=== PATIENT | male | born 1940 | race Caucasian/White ===

== ENCOUNTER 2016-09-07 07:32 | Outpatient (CLI) | payer MEDICARE, OTHER | END 2016-09-07 07:33 | disposition home or self-care (01) | DX: I12.9 Hypertensive chronic kidney disease with stage 1 through stage 4 chronic kidney disease, or unspecified chronic kidney disease (principal); E29.1 Testicular hypofunction; N18.9 Chronic kidney disease, unspecified ==

== ENCOUNTER 2016-12-27 07:55 | Outpatient (CLI) | payer MEDICARE, OTHER ==
[2016-12-27 13:31] LABS: CALCIUM 9.1 mg/dL (8.5-10.3); CREATININE 1.7 mg/dL (0.6-1.2); POTASSIUM 4.6 mmol/L (3.5-5.0)
[2016-12-27 13:34] LABS: HEMOGLOBIN A1C 0.63 g/dL; PSA FREE 1.47 ng/mL (0.16-2.81)
[2016-12-27 13:36] LABS: PSA TOTAL 2.67 ng/mL (0.000-2.000)
== END 2016-12-27 07:56 | disposition home or self-care (01) ==
LOC: LAB.WCP 07:55
PROVIDERS: ATTEND Family Medicine
DX: I12.9 Hypertensive chronic kidney disease with stage 1 through stage 4 chronic kidney disease, or unspecified chronic kidney disease (principal); N18.9 Chronic kidney disease, unspecified; R73.9 Hyperglycemia, unspecified; R97.20 Elevated prostate specific antigen [PSA]; E29.1 Testicular hypofunction
CPT/HCPCS: 36415; 80048; 83036; 84154; 84403

== ENCOUNTER 2017-02-13 07:27 | Outpatient (CLI) | payer MEDICARE, OTHER ==
[2017-02-13 13:39] LABS: CALCIUM 9.2 mg/dL (8.5-10.3); CREATININE 1.1 mg/dL (0.6-1.2); POTASSIUM 4.2 mmol/L (3.5-5.0)
== END 2017-02-13 07:28 | disposition home or self-care (01) ==
LOC: LAB.WCP 07:27
PROVIDERS: ATTEND Family Medicine
DX: R73.9 Hyperglycemia, unspecified (principal); I12.9 Hypertensive chronic kidney disease with stage 1 through stage 4 chronic kidney disease, or unspecified chronic kidney disease; N18.9 Chronic kidney disease, unspecified; N52.9 Male erectile dysfunction, unspecified; F32.9 Major depressive disorder, single episode, unspecified
CPT/HCPCS: 36415; 80048

== ENCOUNTER 2017-05-26 10:54 | Outpatient (CLI) | payer MEDICARE, OTHER ==
--- NOTE | 2017-05-26 12:36 | Ultrasound Report ---
LEFT LEG VENOUS DUPLEX: 05/26/2017 CLINICAL INDICATION: Pain, history of left leg DVT. TECHNIQUE: Real-time sonographic vascular imaging was performed by the anvilsmith through the left l ower extremity utilizing both color flow and Doppler spectral analysis. Multiple new accounts representative stati c images were saved for review. FINDINGS: A left lower extremity venous sonogram is performed revealing the common femoral, superfici al femoral, profunda femoris, and popliteal veins to be adequately visualized without intraluminal de fects. There is normal venous compression, augmentation, phasicity, and spontaneity of venous flow. I n the calf, the visualized more cephalad portions of posterior tibial and peroneal veins are grossly compressible, without filling defects. IMPRESSION: NO EVIDENCE OF DEEP VENOUS THROMBOSIS. JOB #: [id number] EXT JOB #:[id number]
== END 2017-05-26 10:55 | disposition home or self-care (01) ==
LOC: DI 10:54
PROVIDERS: ATTEND Family Medicine
DX: M79.605 Pain in left leg (principal)

== ENCOUNTER 2017-06-12 07:40 | Outpatient (CLI) | payer MEDICARE, OTHER ==
--- NOTE | 2017-06-12 13:38 | MRI Report ---
EXAM: MRI LUMBAR SPINE WITHOUT CONTRAST EXAM DATE: 06/12/2017 08:19 AM. CLINICAL HISTORY: Low back pain, chronic. COMPARISON: There are 5 views of the lumbosacral spine 01/28/2015. TECHNIQUE: Multiplanar, multisequence T1-weighted and fluid-sensitive sequences of the lumbar spine f rom T12 to S1 without contrast. Other: None. FINDINGS: There is slight accentuation of the normal lumbar lordosis. The conus terminates at L1-L2 and is norm al. The anterior to posterior dimension of the bony lumbar canal is less than 15 mm consistent with a con genital stenosis. There is mild hypertrophy of the fat in the posterior epidural space at the L3-L4 through L5-S1 level s consistent with areas of epidural lipomatosis. There is a mild decrease in the intervertebral disk space height at the T11-T12, T12-L1, mild to mode rate at L4-L5 and mild decrease at L5-S1. There is a grade 1 anterolisthesis of L4 on L5. The bone marrow signal intensities exhibit a mixture of red and fatty marrow. In a patient of this ag e this can be secondary either to anemia or also can be seen in cases of smoking. Recommend correlati on with history. There is no significant atrophy of the paraspinal musculature or the psoas musculature. The abdominal aorta is of normal caliber. The kidneys are without evidence of hydronephrosis. T11-T12: There is a small disk osteophyte complex abutting the sac producing a mild central canal vonnie nosis. There is no significant foraminal stenosis. T12-L1: There is a small disk osteophyte complex abutting the sac producing a mild central canal sten osis. L1-L2: There is a small perineural cyst within the left foraminal space. Otherwise the remainder of t he level is normal. L2-L3: There is a small disk osteophyte complex abutting the sac producing a mild central canal steno sis. There is mild hypertrophy of the fat in the posterior epidural space. There is minimal left face t arthropathy. L3-L4: There is a small disk osteophyte complex abutting the sac. There is hypertrophy of the fat in the posterior epidural space. This produces a mild to moderate central canal stenosis. There is mild bilateral facet arthropathy. There is mild right and left foraminal stenosis. L4-L5: There is a broad-based disk osteophyte complex with superimposed central extrusion of the disk with annular tear. There is moderate ligamentum flavum hypertrophy. There is severe left and moderat e right facet arthropathy with small to large facet effusions. There are synovial cysts posterior to the facets bilaterally. There is T2 hyperintensity surrounding the right-sided synovial cyst. This ap pears to be associated with the spinous processes. The hyperintensity likely reflects associated area s of inflammation which could be a potential source of pain. There is also an additional synovial cys t extending into the right foraminal space This combination of findings produces a severe central ca nal stenosis. Recommend clinical correlation with symptoms. There is mild to moderate right and moder ate to severe left neural foraminal narrowing. Recommend correlation for left L4 radicular symptoms. L5-S1: There is a small disk osteophyte complex with annular tear abutting the sac. There is moderate to severe right and mild to moderate left facet arthropathy with small to moderate facet effusions. There is mild ligamentum flavum hypertrophy. There is again hypertrophy of the fat in the posterior e pidural space. This combination of findings produces a moderate to severe central canal stenosis ther e is mild to moderate right and left neural foraminal narrowing. IMPRESSION: 1. There is a severe central canal stenosis at L4-L5 from a combination of broad-based disk osteophyt e complex with superimposed central extrusion of the disk in combination with ligamentum flavum hyper trophy, epidural lipomatosis, and facet arthropathy. There are also bilateral synovial cysts. The lar gest appears to be associated with the spinous processes of L4 and L5 and has associated edema likely reflecting areas of inflammation. Recommend correlation with clinical symptoms. 2. There is a small disk osteophyte complex with annular tear at L5-S1 which in combination with liga mentum flavum hypertrophy and epidural lipomatosis produces a moderate to severe central canal stenos is. 3. There is a small disk osteophyte complex which in combination with epidural lipomatosis produces a mild to moderate central canal stenosis. Comment: The following findings are so common in adults without low back pain that while we report th eir presence, they must be interpreted with caution and in the context of the clinical situation. (Re eli Martinez et al, Spine 2001) Prevalence of findings in patients without low back pain: Disk degeneration (any evidence): 92% Disk desiccation/T2 signal loss: 83% Disk height loss: 56% Disk bulge: 64% Disk protrusion: 32% Annular tear/high intensity zone: 38% [facility] Referring Provider Line: [phone] SITE ID: [id number]
== END 2017-06-12 07:41 | disposition home or self-care (01) ==
LOC: DI 07:40
PROVIDERS: ATTEND Family Medicine
DX: M51.26 Other intervertebral disc displacement, lumbar region (principal); M51.36 Other intervertebral disc degeneration, lumbar region; M47.896 Other spondylosis, lumbar region; M51.37 Other intervertebral disc degeneration, lumbosacral region; M71.38 Other bursal cyst, other site; M43.16 Spondylolisthesis, lumbar region
CPT/HCPCS: 72148

== ENCOUNTER 2017-07-06 14:05 | Outpatient (CLI) | payer MEDICARE, OTHER ==
[2017-07-06 14:49] LABS: ALBUMIN/GLOBULIN RATIO 1.3 (1.0-2.2); BUN - BLOOD UREA NITROGEN 31 mg/dL (6-20); CALCIUM 8.9 mg/dL (8.5-10.3); CARBON DIOXIDE - CO2 27 mmol/L (21-32); CHLORIDE 103 mmol/L (101-111); CHOL/HDL RATIO 2.3 (<5.0); CHOLESTEROL 177 mg/dL; CREATININE 1.4 mg/dL (0.6-1.2); GFR - MDRD 49 (>89); GLUCOSE 102 mg/dL (70-100); HDL CHOLESTEROL 78 mg/dL; POTASSIUM 4.6 mmol/L (3.5-5.0); SODIUM 138 mmol/L (135-145); TRIGLYCERIDES 94 mg/dL; VLDL CHOLESTEROL 19 mg/dL
[2017-07-06 15:19] LABS: HEMOGLOBIN A1C 0.64 g/dL
== END 2017-07-06 14:06 | disposition home or self-care (01) ==
LOC: LAB.WCP 14:05
PROVIDERS: ATTEND Family Medicine
DX: N18.9 Chronic kidney disease, unspecified (principal); R73.9 Hyperglycemia, unspecified; I10 Essential (primary) hypertension
CPT/HCPCS: 36415; 80053; 80061; 83036

== ENCOUNTER 2017-08-11 14:25 | Emergency (ER) | payer MEDICARE, OTHER ==
[2017-08-11 14:59] VITALS: BP 141/76
--- NOTE | 2017-08-11 17:27 | XRAY Report ---
EXAM: LEFT FIFTH DIGIT RADIOGRAPHY EXAM DATE: 08/11/2017 05:02 PM. CLINICAL HISTORY: Swelling, erythema left little finger. COMPARISON: None. TECHNIQUE: 3 views. FINDINGS: Bones: Decreased bone density on both sides of the fifth PIP joint with small uncinate fragmentation of the distal phalangeal base and middle phalangeal head. Otherwise unremarkable. Joints: Marked fifth DIP joint space narrowing. Mild narrowing of the other visualized DIP joint and PIP joints. Unremarkable MCP joints. Soft Tissues: Prominent soft tissue swelling. No soft tissue gas or foreign body. IMPRESSION: Findings as above, compatible with joint infection with associated osteomyelitis. Confirm ation with MR scan or 3 phase radionuclide bone scan may be helpful. [facility] Referring Provider Line: [phone] SITE ID: [id number]
[2017-08-11] MEDS ORDERED: AMOX/CLAV 875 MG/125 MG TABLET PO STA (17:58)
--- NOTE | 2017-08-11 18:09 | ED Physician Documentation ---
PD HPI UPPER EXT INJURY - Stated complaint Stated Complaint: LEFT PINKY SWELLING - Chief complaint Chief Complaint: Wound - History obtained from History obtained from: Patient, Family (spouse) - History of Present Illness Location: Left, Finger (little finger) Type of injury: Other (No recent injury.) Timing - onset: How many months ago (1) Timing - duration: Months (1) Timing - details: Still present Associated symptoms: Swelling - Treatment prior to arrival Treatment prior to arrival: Completed a 10 day course of cephalexin 2 weeks ago. - Additonal information Additional information: The patient is a 76-year-old male who presents with swelling of his left little finger. He first noticed the swelling one month ago. He was prescribed a 10 day course of cephalexin at that time, and states that the swelling and erythema improved with the antibiotic therapy. Evaluation for gout was negative. He presents now because of persistent swelling and erythema, although better after the antibiotic therapy then it was prior to the antibiotics. He denies any traumatic injury. He denies fever, numbness or weakness. He has no history of diabetes. He denies history of similar symptoms in the past. He is left-hand dominant. Review of Systems Constitutional: denies: Fever Nose: denies: Congestion Respiratory: denies: Dyspnea Skin: denies: Rash Musculoskeletal: reports: Extremity swelling (Left little finger.) Neurologic: denies: Focal weakness, Numbness PD PAST MEDICAL HISTORY - Past Medical History Past Medical History: Yes Cardiovascular: Hypertension Endocrine/Autoimmune: None HEENT: Chronic vision loss - Past Surgical History Past Surgical History: Yes Ortho: Hip replacement, Carpal Tunnel surgery - Present Medications Home Medications: Ambulatory Orders Medication Instructions Recorded Confirmed Amox/Clav 875/125 [Augmentin] 1 each PO Q12H #20 tablet 08/11/17 Bisoprolol Fumarate/Hctz 1 tab PO DAILY 08/11/17 08/11/17 [Bisoprolol-Hctz 10-6.25 mg Tab] Losartan [Cozaar] 100 mg PO DAILY 08/11/17 08/11/17 Testosterone [Axiron] 30 mg PO DAILY 08/11/17 08/11/17 - Allergies Allergies/Adverse Reactions: Allergies Allergy/AdvReac Type Severity Reaction Status Date / Time No Known Drug Allergies Allergy Verified 08/11/17 14:59 - Social History Does the pt smoke?: No Smoking Status: Never smoker Does the pt drink ETOH?: No Does the pt have substance abuse?: No - Immunizations Immunizations are current?: Yes - POLST Patient has POLST: No PD ED PE NORMAL - Vitals Vital signs reviewed: Yes (Mild systolic hypertension initially.) - General General: Alert and oriented X 3, Well developed/nourished - HEENT HEENT: Atraumatic - Cardiac Cardiac: RRR - Respiratory Respiratory: No respiratory distress - Derm Derm: No rash - Extremities Extremities: Other (There is swelling of the left little finger with mild erythema extending from the fingertip to the PIP joint. There is tenderness to palpation at the DIP joint. There is decreased flexion, particularly at the DIP joint. Distal neurovascular is intact.) - Neuro Neuro: Alert and oriented X 3, No motor deficit, No sensory deficit Results - Vitals Vitals: Oxygen O2 Source Room air - Rads (name of study) Left little finger Radiology: Prelim report reviewed, EMP read contemporaneously, See rad report ( Findings compatible with joint infection with associated osteomyelitis. Confirmation with MR scan or 3 phase radionuclide scan may be helpful.) PD MEDICAL DECISION MAKING - ED course Complexity details: reviewed results, re-evaluated patient, considered differential, d/w patient, d/w family, d/w clinical application consultant ED course: The patient's presentation is significant for osteomyelitis of the left little finger, predominantly at the DIP joint. This has apparently been a smoldering infection over a period of one month or more. I discussed his condition with Dr. Cabrera who was on-call for orthopedic surgery. He advises that the patient should be referred to a hand specialist on an urgent, but not necessarily an emergent basis. I discussed his condition with Dr. Valderrama who is on-call for Dr. Alcantara, the patient's primary physician. He will assure that the patient has a Monday appointment for hand specialist referral. Treatment in the emergency department included administration of Augmentin 875 mg orally. He is being discharged with prescription for Augmentin. I discussed with him and his the diagnosis, importance of urgent follow-up, as well as potentially worrisome signs or symptoms that should prompt reevaluation in the emergency department. Departure - Departure Disposition: 01 Home, Self Care Clinical Impression: Osteomyelitis Qualifiers: Osteomyelitis type: subacute Osteomyelitis location: hand Laterality: left Qualified Code(s): M86.242 - Subacute osteomyelitis, left hand Condition: Stable Instructions: Amoxicillin Clavulanic Acid extended-release tablets Follow-Up: JEANA ALCANTARA MD [Physician No Access] - Prescriptions: Amox/Clav 875/125 [Augmentin] 1 each PO Q12H #20 tablet Comments: Take Augmentin twice daily as prescribed. Take probiotic while on antibiotic therapy. Follow up with Dr. Alcantara next week as soon as possible. He may want to refer you to a hand specialist. Return to the emergency department if you develop increasing redness or swelling of your finger, or otherwise worsening symptoms. Discharge Date/Time: 08/11/17 18:25
== END 2017-08-11 18:25 | disposition home or self-care (01) ==
LOC: ED 14:25
DX: M86.242 Subacute osteomyelitis, left hand (principal); I10 Essential (primary) hypertension
CPT/HCPCS: 73140; 99283; A9270

== ENCOUNTER 2018-01-09 07:50 | Outpatient (CLI) | payer MEDICARE, OTHER ==
[2018-01-09 08:08] LABS: BASOPHILS % (AUTO) 0.6 %; EOSINOPHILS # (AUTO) 0.2 10^3/uL (0.0-0.7); EOSINOPHILS % (AUTO) 2.4 %; LYMPHOCYTES # (AUTO) 1.4 10^3/uL (1.5-3.5); LYMPHOCYTES % (AUTO) 22.3 %; MEAN CORPUSCULAR HEMOGLOBIN 33.8 pg (27.0-31.0); MEAN CORPUSCULAR HGB CONC 33.7 g/dL (32.0-36.0); MEAN CORPUSCULAR VOLUME 100.4 fL (80.0-94.0); MEAN PLATELET VOLUME 8.6 fL (7.4-11.4); MONOCYTES # (AUTO) 0.6 10^3/uL (0.0-1.0); MONOCYTES % (AUTO) 9.2 %; NEUTROPHILS # (AUTO) 4.2 10^3/uL (1.5-6.6); NEUTROPHILS % (AUTO) 65.5 %; PLT - PLATELET COUNT 181 10^3/uL (130-450); RED BLOOD COUNT 4.72 10^6/uL (4.70-6.10); RED CELL DISTRIBUTION WIDTH 14.2 % (12.0-15.0); WHITE BLOOD COUNT 6.5 x10^3/uL (4.8-10.8)
[2018-01-09 08:30] LABS: ALBUMIN 3.5 g/dL (3.2-5.5); ALBUMIN/GLOBULIN RATIO 1.2 (1.0-2.2); ALKALINE PHOSPHATASE 29 IU/L (42-121); ALT ALANINE AMINOTRANSFERASE 23 IU/L (10-60); AST ASPARTATE AMINOTRANSFERASE 31 IU/L (10-42); BILIRUBIN,TOTAL 0.7 mg/dL (0.2-1.0); BUN - BLOOD UREA NITROGEN 24 mg/dL (6-20); CALCIUM 8.7 mg/dL (8.5-10.3); CARBON DIOXIDE - CO2 26 mmol/L (21-32); CHLORIDE 105 mmol/L (101-111); CHOL/HDL RATIO 2.4 (<5.0); CHOLESTEROL 142 mg/dL; CREATININE 1.6 mg/dL (0.6-1.2); GFR - MDRD 42 (>89); GLUCOSE 92 mg/dL (70-100); HDL CHOLESTEROL 58 mg/dL; LDL CHOLESTEROL,CALCULATED 54 mg/dL; LDL/HDL RATIO 0.9 (<3.6); SODIUM 138 mmol/L (135-145); TOTAL PROTEIN 6.4 g/dL (6.7-8.2); VLDL CHOLESTEROL 30 mg/dL
== END 2018-01-09 07:51 | disposition home or self-care (01) ==
LOC: LAB 07:50
PROVIDERS: ATTEND Internal Medicine
DX: E29.1 Testicular hypofunction (principal); Z79.899 Other long term (current) drug therapy; I10 Essential (primary) hypertension
CPT/HCPCS: 36415; 80053; 80061; 83721; 84403; 85025

== ENCOUNTER 2018-04-26 08:00 | Outpatient (CLI) | payer MEDICARE, OTHER ==
[2018-04-26 15:50] LABS: ALBUMIN 3.9 g/dL (3.2-5.5); ALBUMIN/GLOBULIN RATIO 1.4 (1.0-2.2); BILIRUBIN,TOTAL 1.1 mg/dL (0.2-1.0); CALCIUM 8.6 mg/dL (8.5-10.3); CREATININE 1.4 mg/dL (0.6-1.2); TOTAL PROTEIN 6.7 g/dL (6.7-8.2)
== END 2018-04-26 08:01 | disposition home or self-care (01) ==
LOC: LAB.R 08:00
PROVIDERS: ATTEND Internal Medicine
DX: N18.9 Chronic kidney disease, unspecified (principal)
CPT/HCPCS: 80053; 80061; 83036; 83721; 84153; 84443; 85025; 87640

== ENCOUNTER 2018-04-27 09:15 | Outpatient (CLI) | payer MEDICARE, OTHER ==
[2018-04-27 17:21] LABS: BASOPHILS # (AUTO) 0.2 10^3/uL (0.0-0.1); BASOPHILS % (AUTO) 2.8 %; EOSINOPHILS # (AUTO) 0.1 10^3/uL (0.0-0.7); EOSINOPHILS % (AUTO) 1.5 %; HGB - HEMOGLOBIN 16.1 g/dL (14.0-18.0); LYMPHOCYTES # (AUTO) 1.3 10^3/uL (1.5-3.5); LYMPHOCYTES % (AUTO) 14.5 %; MEAN CORPUSCULAR HEMOGLOBIN 33.7 pg (27.0-31.0); MEAN CORPUSCULAR HGB CONC 33.6 g/dL (32.0-36.0); MEAN CORPUSCULAR VOLUME 100.3 fL (80.0-94.0); MEAN PLATELET VOLUME 10.3 fL (7.4-11.4); MONOCYTES # (AUTO) 0.8 10^3/uL (0.0-1.0); MONOCYTES % (AUTO) 9.4 %; NEUTROPHILS # (AUTO) 6.4 10^3/uL (1.5-6.6); NEUTROPHILS % (AUTO) 71.8 %; PLT - PLATELET COUNT 184 10^3/uL (130-450); RED BLOOD COUNT 4.76 10^6/uL (4.70-6.10); RED CELL DISTRIBUTION WIDTH 12.7 % (12.0-15.0); WHITE BLOOD COUNT 8.9 x10^3/uL (4.8-10.8)
== END 2018-04-27 09:16 | disposition home or self-care (01) ==
LOC: LAB.R 09:15
PROVIDERS: ATTEND Internal Medicine
DX: Z01.818 Encounter for other preprocedural examination (principal); N18.9 Chronic kidney disease, unspecified
CPT/HCPCS: 85025

== ENCOUNTER 2018-07-30 08:00 | Outpatient (CLI) | payer MEDICARE, OTHER ==
[2018-07-30 15:34] LABS: CALCIUM 8.6 mg/dL (8.5-10.3); CREATININE 1.3 mg/dL (0.6-1.2)
== END 2018-07-30 23:59 | disposition home or self-care (01) ==
LOC: LAB.R 08:00
PROVIDERS: ATTEND Internal Medicine
DX: N18.9 Chronic kidney disease, unspecified (principal)
CPT/HCPCS: 80048

== ENCOUNTER 2018-09-17 08:27 | Emergency (ER) | payer MEDICARE, OTHER ==
--- NOTE | 2018-09-17 08:40 | ED Physician Documentation ---
PD HPI HEENT - Stated complaint Stated Complaint: BLODDY NOSE - History obtained from History obtained from: Patient - History of Present Illness Timing - onset: How many days ago (3) Timing - duration: Days Timing - details: Intermittant (more persistent and voluminous today) Location: Nose Associated symptoms: Congestion, Rhinorrhea. No: Fever, Swollen nodes Similar symptoms before: Has not had sx before Review of Systems Constitutional: denies: Fever Nose: reports: Rhinorrhea / runny nose, Congestion. denies: Sinus pressure / pain Throat: denies: Sore throat Respiratory: denies: Cough PD PAST MEDICAL HISTORY - Past Medical History Cardiovascular: Hypertension Endocrine/Autoimmune: None HEENT: Chronic vision loss - Past Surgical History Past Surgical History: Yes Ortho: Hip replacement, Carpal Tunnel surgery - Present Medications Home Medications: Ambulatory Orders Medication Instructions Recorded Confirmed Bisoprolol Fumarate/Hctz 1 tab PO DAILY 08/11/17 08/11/17 [Bisoprolol-Hctz 10-6.25 mg Tab] Losartan [Cozaar] 100 mg PO DAILY 08/11/17 08/11/17 Testosterone [Axiron] 30 mg PO DAILY 08/11/17 08/11/17 Tamsulosin HCl [Flomax] 0.4 mg PO DAILY 09/17/18 09/17/18 - Allergies Allergies/Adverse Reactions: Allergies Allergy/AdvReac Type Severity Reaction Status Date / Time No Known Drug Allergies Allergy Verified 08/11/17 14:59 - Social History Does the pt smoke?: No Smoking Status: Never smoker Does the pt drink ETOH?: No Does the pt have substance abuse?: No - Immunizations Immunizations are current?: Yes - POLST Patient has POLST: No PD ED PE NORMAL - Vitals Vital signs reviewed: Yes - General General: Alert and oriented X 3, Well developed/nourished - HEENT HEENT: Pharynx benign, Other (red blood and some clots in nares both sides. ) - Neck Neck: Supple, no meningeal sign, No adenopathy - Cardiac Cardiac: RRR, No murmur - Respiratory Respiratory: Clear bilaterally Results - Vitals Vitals: Vital Signs - 24 hr 09/17/18 08:42 Temperature 37.2 C Heart Rate 60 Respiratory 16 Rate Blood Pressure 146/85 H O2 Saturation 98 Oxygen O2 Source Room air - Labs Labs: Laboratory Tests 09/17/18 09/17/18 09:10 09:10 WBC 6.6 RBC 4.48 L Hgb 15.0 Hct 44.1 MCV 98.6 H MCH 33.5 H MCHC 34.0 RDW 14.0 Plt Count 146 MPV 7.7 Neut # (Auto) 4.5 Lymph # (Auto) 1.2 L [place] # (Auto) 0.6 Eos # (Auto) 0.2 Baso # (Auto) 0.1 Absolute Nucleated RBC 0.00 Nucleated RBC % 0.0 Sodium 138 Potassium 4.9 Chloride 103 Carbon Dioxide 26 Anion Gap 9.0 BUN 23 H Creatinine 1.3 H Estimated GFR (MDRD) 53 L Glucose 88 Calcium 8.6 Total Bilirubin 0.9 AST 30 ALT 21 Alkaline Phosphatase 43 Total Protein 6.3 L Albumin 3.6 Globulin 2.7 Albumin/Globulin Ratio 1.3 Lipase 28 Procedures - Epistaxis Site: Both (the bleeding is from irritation at posterior aspect of the prior septal hole. So bleeding to both nares.), Anterior Preparation: Clots removed, Lidocaine (with epi, and some TXA.) Treatment: Silver Nitrate, Packing inserted Other: Observed - no bleeding, Pt tolerated well, Referred to ENT PD MEDICAL DECISION MAKING - ED course Complexity details: considered differential (has had nasal congestion so irritated mucous membranes in nose. Has prior septal hole "my whole life" per patient. ), d/w patient Departure - Departure Disposition: 01 Home, Self Care Clinical Impression: Epistaxis Condition: Stable Record reviewed to determine appropriate education?: Yes Instructions: ED Nosebleed, ED Nasal Packing Anterior Removable Follow-Up: Manas Barrios MD [Primary Care Provider] - [facility] [Provider Group] Comments: Your blood count is good. Your platelet count is normal as well. Leave the foam packings in the nostrils until this evening and then pulled in all gently after moisturizing them with water. Subsequently use some Vaseline or a and D ointment or similar just lightly in the inside wall of the nostrils on both side s once or twice daily to keep it from being raw. Follow-up with ENT for evaluation of the septum. Discharge Date/Time: 09/17/18 10:20
[2018-09-17 08:45] VITALS: BP 146/85
[2018-09-17] MEDS ORDERED: TRANEXAMIC ACID 1,000 MG/10 ML VIAL NAS STA (08:58)
[2018-09-17] MEDS ORDERED: LIDOCAINE MPF 1%-EPI 1:200000 30 ML VIAL SUBQ STA (08:58)
[2018-09-17 09:19] LABS: BASOPHILS # (AUTO) 0.1 10^3/uL (0.0-0.1); BASOPHILS % (AUTO) 0.9 %; EOSINOPHILS # (AUTO) 0.2 10^3/uL (0.0-0.7); EOSINOPHILS % (AUTO) 3.1 %; LYMPHOCYTES # (AUTO) 1.2 10^3/uL (1.5-3.5); LYMPHOCYTES % (AUTO) 18.1 %; MEAN CORPUSCULAR HEMOGLOBIN 33.5 pg (27.0-31.0); MEAN CORPUSCULAR VOLUME 98.6 fL (80.0-94.0); MEAN PLATELET VOLUME 7.7 fL (7.4-11.4); MONOCYTES # (AUTO) 0.6 10^3/uL (0.0-1.0); MONOCYTES % (AUTO) 9.4 %; NEUTROPHILS # (AUTO) 4.5 10^3/uL (1.5-6.6); NEUTROPHILS % (AUTO) 68.5 %; PLT - PLATELET COUNT 146 10^3/uL (130-450); RED BLOOD COUNT 4.48 10^6/uL (4.70-6.10); WHITE BLOOD COUNT 6.6 x10^3/uL (4.8-10.8)
[2018-09-17 09:29] LABS: ALBUMIN 3.6 g/dL (3.2-5.5); ALBUMIN/GLOBULIN RATIO 1.3 (1.0-2.2); BILIRUBIN,TOTAL 0.9 mg/dL (0.2-1.0); CREATININE 1.3 mg/dL (0.6-1.2); TOTAL PROTEIN 6.3 g/dL (6.7-8.2)
[2018-09-17 09:35] LABS: CALCIUM 8.6 mg/dL (8.5-10.3)
== END 2018-09-17 10:20 | disposition home or self-care (01) ==
LOC: ED 08:27
DX: R04.0 Epistaxis (principal); R09.81 Nasal congestion; I10 Essential (primary) hypertension
CPT/HCPCS: 30901; 30905; 36415; 80053; 83690; 85025; 99282; 99283

== ENCOUNTER 2018-09-23 15:03 | Emergency (ER) | payer MEDICARE, OTHER ==
[2018-09-23 15:21] VITALS: BP 160/69
--- NOTE | 2018-09-23 16:46 | Ultrasound Report ---
Reason: calf pain and swelling Procedure Date: 09/23/2018 Accession Number: [id number] / [id number] Procedure: US - Duplex Ext Veins Left CPT Code: FULL RESULT: EXAM: LEFT LOWER EXTREMITY VENOUS ULTRASOUND EXAM DATE: 09/23/2018 04:06 PM. CLINICAL HISTORY: Calf pain and swelling. COMPARISON: DUPLEX EXT VEINS LEFT 05/26/2017 11:25 AM. TECHNIQUE: Real-time sonographic vascular imaging was performed by the electronic resources librarian through the lower extremity utilizing both color-flow and Doppler spectral analysis. Multiple quality control representative static images were saved for review. FINDINGS: Common Femoral Vein (CFV): Nonocclusive thrombus. CFV-GSV Junction: Occlusive thrombus. Profunda Femoral Vein (PFV): Occlusive thrombus. Femoral Vein (FV) Prox: Occlusive thrombus. Femoral Vein (FV) Mid: Occlusive thrombus. Femoral Vein (FV) Dist: Nonocclusive thrombus. Popliteal Vein: Nonocclusive thrombus. Posterior Tibial Veins: Nonocclusive thrombus distally, otherwise occlusive. Peroneal Veins: Occlusive thrombus. IMPRESSION: DVT throughout the left lower extremity. [facility] The critical result notification system was initiated by Dr. Twan Sousa at 04:44 PM on 09/23/2018. ADDENDUM: 09/23/18 16:50 The above critical result findings were discussed with Varun Fonseca by Dr. Tawn Sousa at 04:50 PM on 09/23/2018.
--- NOTE | 2018-09-23 16:51 | ED Physician Documentation ---
PD HPI LOWER EXT INJURY - Stated complaint Stated Complaint: LT LEG SWOLLEN - Chief complaint Chief Complaint: General - History obtained from History obtained from: Patient - History of Present Illness PD HPI LOW EXT INJURY LOCATION: Left, Lower leg, Foot Type of injury: No: Fall, Twist Timing - onset: How many days ago (2-3) Timing - duration: Days Timing - details: Gradual onset Worsened by: Palpating Associated symptoms: Swelling. No: Weakness, Numbness Contributing factors: No: Anticoagulated Similar symptoms before: Diagnosis (prior DVT after hip surgery in the past) Review of Systems Constitutional: denies: Fever Nose: denies: Rhinorrhea / runny nose, Congestion Throat: denies: Sore throat Cardiac: denies: Chest pain / pressure, Palpitations Respiratory: denies: Dyspnea, Cough PD PAST MEDICAL HISTORY - Past Medical History Cardiovascular: Hypertension Endocrine/Autoimmune: None HEENT: Chronic vision loss - Past Surgical History Past Surgical History: Yes Ortho: Hip replacement, Carpal Tunnel surgery - Present Medications Home Medications: Ambulatory Orders Medication Instructions Recorded Confirmed Bisoprolol Fumarate/Hctz 1 tab PO DAILY 08/11/17 09/23/18 [Bisoprolol-Hctz 10-6.25 mg Tab] Losartan [Cozaar] 100 mg PO DAILY 08/11/17 09/23/18 Testosterone [Axiron] 30 mg PO DAILY 08/11/17 09/23/18 Tamsulosin HCl [Flomax] 0.4 mg PO DAILY 09/17/18 09/23/18 Rivaroxaban [Xarelto] 15 mg PO BID #40 tablet 09/23/18 - Allergies Allergies/Adverse Reactions: Allergies Allergy/AdvReac Type Severity Reaction Status Date / Time No Known Drug Allergies Allergy Verified 09/23/18 15:21 - Social History Does the pt smoke?: No Smoking Status: Never smoker Does the pt drink ETOH?: No Does the pt have substance abuse?: No - Immunizations Immunizations are current?: Yes - POLST Patient has POLST: No PD ED PE NORMAL - Vitals Vital signs reviewed: Yes - General General: Alert and oriented X 3, No acute distress, Well developed/nourished - Neck Neck: Supple, no meningeal sign, No adenopathy - Cardiac Cardiac: RRR, No murmur - Respiratory Respiratory: Clear bilaterally - Abdomen Abdomen: Soft, Non tender - Derm Derm: Normal color, Warm and dry - Extremities Extremities: Other (left leg with pitting edema, moderate to mild, with calf and medial thigh tednerness. No edema of foot per se, and normal pulses. Not appearing congested in foot nor toes. ) - Neuro Neuro: Alert and oriented X 3, No motor deficit, No sensory deficit, Normal speech Results - Vitals Vitals: Vital Signs - 24 hr 09/23/18 15:17 Temperature 36.7 C Heart Rate 65 Respiratory 16 Rate Blood Pressure 160/69 H O2 Saturation 99 Oxygen O2 Source Room air - Rads (name of study) duples leg Radiology: Prelim report reviewed, Discussed with rads (large DVT from peroneal to thigh.) PD MEDICAL DECISION MAKING - ED course Complexity details: reviewed results, considered differential (large new DVT. Referenced UpToDate and suggestion for large DVT would be inpatient observation for initial anticoagulation due to concern for PE. I talked with Dr. Willams, Hospitalist, who said patient did not meet admission level of need. I talked with patient and , and they are comfortable going home, I relayed concern to return immediately if any chest pain/dyspnea. Patient himself would prefer not hospitalized anyway. ), d/w patient Departure - Departure Disposition: 01 Home, Self Care Clinical Impression: DVT (deep venous thrombosis) Qualifiers: DVT location: lower extremity Affected thrombotic vein of extremity: unspecified lower extremity proximal vein Chronicity: acute Laterality: left Qualified Code(s): I82.4Y2 - Acute embolism and thrombosis of unspecified deep veins of left proximal lower extremity Condition: Stable Record reviewed to determine appropriate education?: Yes Instructions: ED DVT Follow-Up: Thien Shankar MD [Primary Care Provider] - Prescriptions: Rivaroxaban [Xarelto] 15 mg PO BID #40 tablet Comments: Rest for the next 2-3 days and elevate your leg often when rested. No vigorous activity nor the physical therapy for the next 2-3 days until the anticoagulants have a chance to initiate consolidation of the clot. It is okay to walk lightly such as to the bathroom and around the house. Follow-up with your primary care within the week. Xarelto twice daily for the next 3 weeks and then will be a daily dose after that and I will have your primary care do the subsequent prescriptions. Tylenol if needed for pains. Discharge Date/Time: 09/23/18 18:20
[2018-09-23] MEDS ORDERED: ENOXAPARIN 100 MG/ML SYRINGE SUBQ STA (17:21)
[2018-09-23] MEDS ORDERED: RIVAROXABAN 15 MG TABLET PO STA (17:21)
== END 2018-09-23 18:20 | disposition home or self-care (01) ==
LOC: ED 15:03
DX: I82.4Y2 Acute embolism and thrombosis of unspecified deep veins of left proximal lower extremity (principal); I10 Essential (primary) hypertension; Z86.718 Personal history of other venous thrombosis and embolism; Z96.649 Presence of unspecified artificial hip joint
CPT/HCPCS: 93971; 99283; A9270; J1650

== ENCOUNTER 2018-11-26 08:40 | Outpatient (CLI) | payer MEDICARE, OTHER | END 2018-11-26 08:41 | disposition home or self-care (01) | LOC: LAB 08:40 | PROVIDERS: ATTEND Family Medicine | DX: R79.89 Other specified abnormal findings of blood chemistry (principal) | CPT/HCPCS: 36415; 84403 ==

== ENCOUNTER 2019-04-17 10:59 | Outpatient (CLI) | payer MEDICARE, OTHER ==
--- NOTE | 2019-04-17 12:42 | XRAY Report ---
Reason: CERVICAL RADICULOPATHY Procedure Date: 04/17/2019 Accession Number: [id number] / [id number] Procedure: XR - Cervical Spine Complete CPT Code: FULL RESULT: EXAM: CERVICAL SPINE RADIOGRAPHY EXAM DATE: 04/17/2019 11:18 AM. CLINICAL HISTORY: Cervical radiculopathy. COMPARISONS: None. TECHNIQUE: 5 views. FINDINGS: Alignment: There is loss of normal cervical lordosis. Bones: No compression fracture or malalignment. Disks: Marked disk height narrowing at C3-C4, C4-C5, C5-C6, and C6-C7. No subluxation at any level. On the right side, there is severe bony foraminal stenosis at C3-C4 and C4-C5; there is less severe bony foraminal stenosis at other levels. On the left side, there is moderate bony foraminal stenosis at C5-C6 and C6-C7. Facets: Moderate bilateral multilevel uncovertebral joint and facet arthropathy. Neural Foramina: See above. Soft Tissues: Normal. No prevertebral soft tissue swelling. The visualized lung apices are clear. IMPRESSION: 1. No acute finding. No compression fracture. 2. Moderately severe multilevel degenerative disk disease and bony foraminal stenosis as described above. If clinically required, the next imaging option would be MRI without contrast. [facility]
== END 2019-04-17 11:00 | disposition home or self-care (01) ==
LOC: DI 10:59
PROVIDERS: ATTEND Family Medicine
DX: M50.11 Cervical disc disorder with radiculopathy, high cervical region (principal); M48.02 Spinal stenosis, cervical region
CPT/HCPCS: 72050

== ENCOUNTER 2019-05-30 15:40 | Emergency (ER) | payer MEDICARE, OTHER ==
[2019-05-30 15:50] VITALS: BP 137/64
--- NOTE | 2019-05-30 17:07 | ED Physician Documentation ---
PD HPI LOWER EXT INJURY - Stated complaint Stated Complaint: L LEG INJ/BLOOD CLOT - Chief complaint Chief Complaint: Ext Problem - History obtained from History obtained from: Patient, Family - History of Present Illness PD HPI LOW EXT INJURY LOCATION: Left, Other (posterior thigh and leg) Type of injury: Other Where injury occurred: Home Timing - onset: Yesterday Timing - duration: Days (1.5) Timing - details: Abrupt onset Severity Comments: moderate swelling, discomfort Improved by: Nothing Worsened by: Other (nothing) Associated symptoms: Swelling, Other (denies numbness or weakness) Contributing factors: Anticoagulated (on Xarelto for a DVT diagnosed in the Left leg at least 2 months ago) Similar symptoms before: Has not had sx before Recently seen: Clinic - Treatment prior to arrival Treatment prior to arrival: none - Additional information Additional information: Pt has been on Xarelto for a DVT diagnosed a month ago. Yesterday he was working and felt a pop in the back of his thigh and afterwards had swelling of the leg. His clinic doctor sent him to the ED for eval because of his hx of a DVT in this leg. 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 He denies chest pain, sob, weakness, syncope, numbness. Review of Systems Ten Systems: 10 systems reviewed and negative Constitutional: reports: Reviewed and negative Cardiac: reports: Reviewed and negative Respiratory: reports: Reviewed and negative GI: reports: Reviewed and negative : reports: Reviewed and negative Skin: reports: Reviewed and negative Musculoskeletal: reports: Extremity pain, Extremity swelling Neurologic: reports: Reviewed and negative Psychiatric: reports: Reviewed and negative Endocrine: reports: Easy bruising / bleeding Immunocompromised: reports: Reviewed and negative PD PAST MEDICAL HISTORY - Past Medical History Past Medical History: Yes Cardiovascular: Hypertension Endocrine/Autoimmune: None HEENT: Chronic vision loss - Past Surgical History Past Surgical History: Yes Ortho: Hip replacement, Carpal Tunnel surgery - Present Medications Home Medications: Ambulatory Orders Medication Instructions Recorded Confirmed Bisoprolol/Hydrochlorothiazide 1 tab PO DAILY 08/11/17 09/23/18 [Bisoprolol-Hctz 10-6.25 mg Tab] Losartan [Cozaar] 100 mg PO DAILY 08/11/17 09/23/18 Testosterone [Axiron] 30 mg PO DAILY 08/11/17 09/23/18 Tamsulosin HCl [Flomax] 0.4 mg PO DAILY 09/17/18 09/23/18 Rivaroxaban [Xarelto] 15 mg PO BID #40 tablet 09/23/18 - Allergies Allergies/Adverse Reactions: Allergies Allergy/AdvReac Type Severity Reaction Status Date / Time No Known Drug Allergies Allergy Verified 09/23/18 15:21 - Social History Does the pt smoke?: No Smoking Status: Never smoker Does the pt drink ETOH?: No Does the pt have substance abuse?: No - Immunizations Immunizations are current?: Yes - POLST Patient has POLST: No PD ED PE NORMAL - Vitals Vital signs reviewed: Yes - General General: Alert and oriented X 3, No acute distress, Well developed/nourished - HEENT HEENT: Atraumatic, Pharynx benign - Neck Neck: Supple, no meningeal sign - Cardiac Cardiac: RRR - Respiratory Respiratory: No respiratory distress - Abdomen Abdomen: Soft, Non tender, Non distended - Male Male : Deferred - Rectal Rectal: Deferred - Derm Derm: Warm and dry, Other (ecchymosis along L posterior and medial thigh with swelling extending from thigh to lower leg) - Neuro Neuro: Alert and oriented X 3, No motor deficit, No sensory deficit Eye Opening: Spontaneous Motor: Obeys Commands Verbal: Oriented GCS Score: 15 - Psych Psych: Normal mood, Normal affect Results - Vitals Vitals: Vital Signs - 24 hr 05/30/19 15:45 Temperature 36.4 C L Heart Rate 66 Respiratory 18 Rate Blood Pressure 137/64 H O2 Saturation 100 Oxygen O2 Source Room air Procedures - Bedside sono Bedside sono by EMP: US of Left leg for DVT compressible common and superficial femoral veins and popliteal veins without evidence of echogenic material or clot. Negative for DVT. PD MEDICAL DECISION MAKING - ED course Complexity details: reviewed old records, re-evaluated patient, considered differential, d/w patient, d/w family ED course: ddx- DVT, thigh hematoma, hamstring strain 78 y/o M with hx and exam as documented, concerned about worsening DVT but on exam has a thigh hematoma from a likely hamsting pull given his history. The compartments are soft but he does have a large hematoma. His vitals however are stable and he denies weakness, syncope, dizziness, or lightheadedness or other symptoms of significant blood loss anemia. I discussed with him the option to the obtain labs and imaging of the thigh vs monitor at home and he feels well to return home and monitor the area for additional swelling. Continue supportive care at home. Given he was already going to hold his Xarelto in 2 days will stop it tomorrow instead. Discussed with him and his return precautions in case of new concerning symptoms such as syncope, lightheadeness, weakness, worsening pain, swelling, numbness or other concerns. Departure - Departure Disposition: 01 Home, Self Care Clinical Impression: Hematoma of left thigh Qualifiers: Encounter type: initial encounter Qualified Code(s): S70.12XA - Contusion of left thigh, initial encounter Condition: Stable Record reviewed to determine appropriate education?: Yes Instructions: ED Hematoma Follow-Up: Thien Shankar MD [Primary Care Provider] - Within 1 week (recheck your symptoms ) Comments: Your ultrasound here today was negative for a blood clot in your left leg. Your vessels here were normal and collapsible. You do have a thigh hematoma and should hold your Xarelto for a few days. Have your doctor recheck your leg within a week for improvement. IF worsening pain, worsening swelling, passing out or feeling weak or dizzy you should return to the ED. Discharge Date/Time: 05/30/19 17:23
== END 2019-05-30 17:23 | disposition home or self-care (01) ==
LOC: ED 15:40
DX: S70.12XA Contusion of left thigh, initial encounter (principal); X58.XXXA Exposure to other specified factors, initial encounter; Y99.0 Civilian activity done for income or pay; Z86.718 Personal history of other venous thrombosis and embolism; Z79.01 Long term (current) use of anticoagulants; I10 Essential (primary) hypertension
CPT/HCPCS: 99282

== ENCOUNTER 2019-09-04 09:09 | Outpatient (CLI) | payer MEDICARE, OTHER ==
[2019-09-04 09:55] LABS: BASOPHILS # (AUTO) 0.1 10^3/uL (0.0-0.1); BASOPHILS % (AUTO) 0.8 %; EOSINOPHILS # (AUTO) 0.1 10^3/uL (0.0-0.7); EOSINOPHILS % (AUTO) 1.8 %; HGB - HEMOGLOBIN 16.2 g/dL (14.0-18.0); LYMPHOCYTES # (AUTO) 1.3 10^3/uL (1.5-3.5); LYMPHOCYTES % (AUTO) 19.9 %; MEAN CORPUSCULAR HEMOGLOBIN 33.2 pg (27.0-31.0); MEAN CORPUSCULAR HGB CONC 33.1 g/dL (32.0-36.0); MEAN CORPUSCULAR VOLUME 100.4 fL (80.0-94.0); MEAN PLATELET VOLUME 10.2 fL (7.4-11.4); MONOCYTES # (AUTO) 0.5 10^3/uL (0.0-1.0); MONOCYTES % (AUTO) 8.3 %; NEUTROPHILS # (AUTO) 4.5 10^3/uL (1.5-6.6); NEUTROPHILS % (AUTO) 68.6 %; PLT - PLATELET COUNT 183 10^3/uL (130-450); RED BLOOD COUNT 4.88 10^6/uL (4.70-6.10); RED CELL DISTRIBUTION WIDTH 12.4 % (12.0-15.0); WHITE BLOOD COUNT 6.5 x10^3/uL (4.8-10.8)
[2019-09-04 10:17] LABS: ALBUMIN 3.8 g/dL (3.2-5.5); ALBUMIN/GLOBULIN RATIO 1.4 (1.0-2.2); ALKALINE PHOSPHATASE 30 IU/L (42-121); ALT ALANINE AMINOTRANSFERASE 19 IU/L (10-60); AST ASPARTATE AMINOTRANSFERASE 26 IU/L (10-42); BILIRUBIN,TOTAL 0.9 mg/dL (0.2-1.0); BUN - BLOOD UREA NITROGEN 16 mg/dL (6-20); CARBON DIOXIDE - CO2 29 mmol/L (21-32); CHLORIDE 104 mmol/L (101-111); CHOL/HDL RATIO 2.8 (<5.0); CHOLESTEROL 163 mg/dL; CREATININE 1.2 mg/dL (0.6-1.2); GFR - MDRD 58 (>89); GLUCOSE 95 mg/dL (70-100); HB2 TOTAL 16.7 g/dL; HDL CHOLESTEROL 58 mg/dL; HEMOGLOBIN A1C 0.59 g/dL; HEMOGLOBIN A1C % 5.4 % (4.6-6.2); LDL CHOLESTEROL,CALCULATED 87 mg/dL; LDL/HDL RATIO 1.5 (<3.6); SODIUM 140 mmol/L (135-145); TOTAL PROTEIN 6.6 g/dL (6.7-8.2); VLDL CHOLESTEROL 18 mg/dL
== END 2019-09-04 09:10 | disposition home or self-care (01) ==
LOC: LAB 09:09
PROVIDERS: ATTEND Family Medicine
DX: I12.9 Hypertensive chronic kidney disease with stage 1 through stage 4 chronic kidney disease, or unspecified chronic kidney disease (principal); N18.9 Chronic kidney disease, unspecified; Z79.01 Long term (current) use of anticoagulants; M48.02 Spinal stenosis, cervical region; M54.12 Radiculopathy, cervical region; E29.1 Testicular hypofunction; Z79.899 Other long term (current) drug therapy
CPT/HCPCS: 36415; 80053; 80061; 81599; 83036; 83721; 84402; 84403; 84443; 85025

== ENCOUNTER 2019-11-27 10:04 | Outpatient (CLI) | payer MEDICARE, OTHER | END 2019-11-27 10:05 | disposition home or self-care (01) | LOC: LAB 10:04 | PROVIDERS: ATTEND Family Medicine | DX: R79.89 Other specified abnormal findings of blood chemistry (principal) | CPT/HCPCS: 36415; 84403 ==